=== PATIENT | female | born 1970 | race Caucasian/White ===

== ENCOUNTER → 2016-10-05 | Outpatient (CLI) | payer OTHER | LOC: FIMAGING 09:59 | DX: Z12.31 Encounter for screening mammogram for malignant neoplasm of breast (principal) | CPT/HCPCS: G0202 ==

== ENCOUNTER → 2016-10-13 | Outpatient (CLI) | payer OTHER | LOC: FIMAGING 10:06 | PROVIDERS: ATTEND Internal Medicine | DX: Z12.39 Encounter for other screening for malignant neoplasm of breast (principal); N63 Unspecified lump in breast ==

== ENCOUNTER → 2017-02-22 | Outpatient (CLI) | payer OTHER | LOC: CIMAGING 14:45 | PROVIDERS: ATTEND Internal Medicine | DX: R91.8 Other nonspecific abnormal finding of lung field (principal) | CPT/HCPCS: 71020-PO ==

== ENCOUNTER → 2017-03-02 | Outpatient (CLI) | payer OTHER ==
[~2017-03-02] MED LIST: IOPAMIDOL (ISOVUE-300) 100 ML BTL ONE
== END ==
LOC: CIMAGING 11:12
PROVIDERS: ATTEND Internal Medicine
DX: R91.8 Other nonspecific abnormal finding of lung field (principal); D71 Functional disorders of polymorphonuclear neutrophils
CPT/HCPCS: 71260-PO; Q9967

== ENCOUNTER 2017-03-12 06:18 | Day surgery (SDC) | payer OTHER ==
[2017-03-12] MEDS ORDERED: LIDOCAINE HCL 4% TOPICAL SOLN 50ML ONE (06:30)
[2017-03-12] MEDS ORDERED: LIDOCAINE 1% 300 MG/30 ML SDV ONE (06:30)
[2017-03-12] MEDS ORDERED: ALBUTEROL 3 ML DEYVIAL ONE (06:30)
[2017-03-12] MEDS ORDERED: LIDOCAINE 2% JELLY 5 ML TUBE ONE (06:30)
[2017-03-12] MEDS ORDERED: FLUMAZENIL 0.5 MG/5 ML MDV IVP ONE (07:09)
[2017-03-12 07:10] VITALS: PULSE 57; TEMP 97.7
[2017-03-12] MEDS ORDERED: MIDAZOLAM 2 MG/2 ML VIAL ONE ×2 (07:10→08:19)
[2017-03-12] MEDS ORDERED: LR 1,000 ML IV ONE (07:10)
[2017-03-12] MEDS ORDERED: NALOXONE HCL 0.4 MG/ML INJ ONE (07:10)
[2017-03-12] MEDS ORDERED: fentaNYL 100 MCG/2 ML INJ ONE ×2 (07:11→08:19)
--- NOTE | 2017-03-12 07:41 | PDHPUP ---
History & Physical Update H&P update statement: This history and physical update is based on an assessment of the patient which was completed after admission or registration (within 24 hours), but prior to the surgery/procedure. H&P update: H&P reviewed & patient examined, no change in patient's condition since H&P completed
--- NOTE | 2017-03-12 07:42 | PDPROPOC ---
Sedation Plan of Care Sedation Plan of Care: vital signs stable, mental status noted, patient educated of risks, benefits, alternatives, patient can tolerate sedation ASA Classification: ASA 1 Mallampati Score: Class 1 332 Rule: 2
[2017-03-12 08:33] VITALS: BP 104/57; RESP 16; O2SAT 95
--- NOTE | 2017-03-12 09:07 | GPN ---
[f rep st] PROCEDURE NOTE PROCEDURE: Fiberoptic bronchoscopy. INDICATION: Right upper lobe lung mass. ANESTHESIA: She received Versed 6 mg, fentanyl 175 mcg. She also received 1% lidocaine topically, 4% lidocaine nebulized. Procedure was performed in the endoscopy suite with continuous pulse ox, EK G, blood pressure monitoring. It was performed in a negative pressure room. N95 masks were used th roughout the procedure. DESCRIPTION OF PROCEDURE: Bronchoscope was entered orally. Vocal cords were visualized and opposed easily. Trachea and basil were visualized and showed no endobronchial lesion, normal-appearing mu cosa. Bronchoscope was entered in the left lung. Left upper lobe, lingula, left lower lobe, includ ing subsegments, were visualized and showed no endobronchial lesion, normal-appearing mucosa. Bronc hoscope in the right lung. Right upper lobe, right middle lobe, right lower lobe, including subsegm ents, were visualized and showed no endobronchial lesion and normal-appearing mucosa. Via fluorosco py attempts were made to biopsy the right upper lobe mass; however, was unable to place forceps on t his. Bronchoalveolar lavage was taken from the right upper lobe. This was sent for C and S, AFB, f ungal cultures, and cytology. Patient tolerated the procedure well. There were no apparent complic ations. Portable chest x-ray was called for. /[id number]/MODL
== END 2017-03-12 10:32 | disposition home or self-care (01) ==
LOC: FSGY 06:18
PROVIDERS: ATTEND Internal Medicine Pulmonary Disease
PROC: 0B948ZX Drainage of Right Upper Lobe Bronchus, Via Natural or Artificial Opening Endoscopic, Diagnostic (ICD-10-PCS; principal; 2017-03-12 07:30)
DX: R91.8 Other nonspecific abnormal finding of lung field (principal); Z87.891 Personal history of nicotine dependence; Z80.1 Family history of malignant neoplasm of trachea, bronchus and lung
CPT/HCPCS: J0171; J2250; J2310; J3010

== ENCOUNTER 2017-03-21 13:42 | Emergency (ER) | payer OTHER ==
[2017-03-21 13:50] VITALS: RESP 16
--- NOTE | 2017-03-21 14:48 | EDPHY ---
H & P Stated Complaint: ? reaction in IV isotope:?passed out Time Seen by Provider: 03/21/17 14:32 HPI/ROS: CHIEF COMPLAINT: Syncopal episode after receiving injection for PET scan HISTORY OF PRESENT ILLNESS: The patient presents to the ED after she experienced a episode of unresponsiveness and shaking in her legs following the injection of a material for a PET scan. The patient was given Benadryl with the thought that this may be a allergic reaction. Although she had no symptoms of hives, urticaria or wheezing. The patient does report she has a history of depression and anxiety. 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 The patient denies any complaints of acute headache , numbness, focal weakness, fever, acute pain or other concerns. REVIEW OF SYSTEMS: A comprehensive 10 point review of systems is otherwise negative aside from elements mentioned in the history of present illness. Source: Patient Exam Limitations: No limitations - Personal History Current Tetanus Diphtheria and Acellular Pertussis (TDAP): Yes - Medical/Surgical History Hx Asthma: Yes Hx Chronic Respiratory Disease: Yes Hx Diabetes: No Hx Cardiac Disease: No Hx Renal Disease: No Hx Cirrhosis: No Hx Alcoholism: Yes Hx HIV/AIDS: No Hx Splenectomy or Spleen Trauma: No Other PMH: Allergies. lung mass - Social History Smoking Status: Current every day smoker - Physical Exam Exam: General Appearance: Alert, no distress Eyes: Pupils equal and round no pallor or injection ENT, Mouth: Mucous membranes moist Respiratory: There are no retractions, lungs are clear to auscultation Cardiovascular: Regular rate and rhythm Gastrointestinal: Abdomen is soft and nontender, no masses, bowel sounds normal Neurological: A&O, normal motor function, normal sensory exam, normal cranial nerves Skin: Warm and dry, no rashes Musculoskeletal: Neck is supple nontender Extremities: symmetrical, full range of motion Constitutional: Initial Vital Signs Temperature (C) 37 C 03/21/17 13:48 Heart Rate 55 L 03/21/17 13:48 Respiratory Rate 16 03/21/17 13:48 Blood Pressure 122/80 H 03/21/17 13:48 O2 Sat (%) 97 03/21/17 13:48 O2 Delivery Mode Room Air Allergies/Adverse Reactions: No Known Allergies Allergy (Verified 03/21/17 13:47) Home Medications: Medication Instructions Recorded Albuterol Hfa Anes Only [Proair 2 puffs IH QID PRN #1 mdi 02/06/15 Hfa Anes Only] LAMICTAL ODT (GREEN) 02/06/15 Levothyroxine [Synthroid 25 mcg 02/06/15 (*)] Paxil 10mg (RX) 02/06/15 Prozac 40 mg 03/12/17 Medical Decision Making - Diagnostics EKG Interpretation: EKG: Complete interpretation has been separately recorded in the [facility] archive. Summary impression: Sinus rhythm, no acute changes noted ED Course/Re-evaluation: The patient presents to the ED after not unexplained episode while getting a CT PET scan. She had no evidence of hives or anaphylaxis however did have an episode of decreased responsiveness and reported shaking of her bilateral lower extremities. The patient was conscious during this episode. The patient has had no prior history of similar reactions in the past. She did receive Benadryl prior to arrival. The patient arrived in the emergency department with a normal neurologic examination, no abnormal motor activity or abnormal behavior. The patient's EKG demonstrates no evidence of an arrhythmia and the patient's laboratory studies are within normal limits. The patient was observed here for several hours. She was examined by myself x2 over a 2 hour period without any development of new symptoms or vital sign abnormalities. At this point time the etiology of her symptoms are somewhat uncertain. It is certainly possible that they were psychogenic in nature versus an atypical reaction to the medication used for the PET scan. I do feel the patient can be discharged home with instructions to return to the ED for any recurrent symptoms or other concerns. Differential Diagnosis: Differential diagnosis considered includes seizure, anaphylactic reaction, medication side effect, arrhythmia - Data Points Laboratory Results: Laboratory Results 03/21/17 14:52 03/21/17 14:52 03/21/17 03/21/17 14:52 14:52 WBC 5.13 10^3/uL 10^3/uL (3.80-9.50) RBC 4.48 10^6/uL 10^6/uL (4.18-5.33) Hgb 13.2 g/dL g/dL (12.6-16.3) Hct 39.4 % % (38.0-47.0) MCV 87.9 fL fL (81.5-99.8) MCH 29.5 pg pg (27.9-34.1) MCHC 33.5 g/dL g/dL (32.4-36.7) RDW 13.7 % % (11.5-15.2) Plt Count 250 10^3/uL 10^3/uL (150-400) MPV 8.6 fL L fL (8.7-11.7) Neut % (Auto) 53.3 % % (39.3-74.2) Lymph % (Auto) 29.4 % % (15.0-45.0) [place] % (Auto) 14.4 % H % (4.5-13.0) Eos % (Auto) 2.1 % % (0.6-7.6) Baso % (Auto) 0.6 % % (0.3-1.7) Nucleat RBC Rel Count 0.0 % % (0.0-0.2) Absolute Neuts (auto) 2.73 10^3/uL 10^3/uL (1.70-6.50) Absolute Lymphs (auto) 1.51 10^3/uL 10^3/uL (1.00-3.00) Absolute Monos (auto) 0.74 10^3/uL 10^3/uL (0.30-0.80) Absolute Eos (auto) 0.11 10^3/uL 10^3/uL (0.03-0.40) Absolute Basos (auto) 0.03 10^3/uL 10^3/uL (0.02-0.10) Absolute Nucleated RBC 0.00 10^3/uL 10^3/uL (0-0.01) Immature Gran % 0.2 % % (0.0-1.1) Immature Gran # 0.01 10^3/uL 10^3/uL (0.00-0.10) Sodium 138 mEq/L mEq/L (134-144) Potassium 4.3 mEq/L mEq/L (3.5-5.2) Chloride 103 mEq/L mEq/L (97-110) Carbon Dioxide 23 mEq/l mEq/l (22-31) Anion Gap 12 mEq/L mEq/L (8-16) BUN 10 mg/dL mg/dL (7-23) Creatinine 0.7 mg/dL mg/dL (0.6-1.0) Estimated GFR > 60 Glucose 78 mg/dL mg/dL (70-100) Calcium 8.9 mg/dL mg/dL (8.5-10.4) Medications Given: Sodium Chloride (Ns) 1,000 mls @ 0 mls/hr IV CONT PROSPER PRN Reason: TKO Stop: 09/17/17 14:59 Last Admin: 03/21/17 14:48 Dose: 1,000 mls Departure - Departure Disposition: Home, Routine, Self-Care Clinical Impression: Episode of shaking, Lung mass Condition: Good Instructions: Poison Proofing Your Home (ED) Additional Instructions: 1. Please schedule a follow-up appointment with your primary care provider. 2. Please return to the ED for any recurrent symptoms or other concerns. 3. Your blood testing, EKG and observation in the emergency department demonstrate no evidence of a serious life-threatening reaction. Referrals: Monty Allison MD [Primary Care Provider] - As per Instructions
[2017-03-21] MEDS ORDERED: NS 1,000 ML IV SCH (15:00)
--- NOTE | 2017-03-21 15:00 | CPEKG ---
Heart Rate: 53 RR Interval: 1132 P-R Interval: 172 QRSD Interval: 94 QT Interval: 480 QTC Interval: 451 P [place]: 49 QRS [place]: 97 T Wave [place]: 53 EKG Severity - BORDERLINE ECG - EKG Impression: SINUS RHYTHM Electronically Signed By: Smooth Floyd 21-Mar-2017 15:09:09
[2017-03-21 15:16] LABS: % IMMATURE GRANULYOCYTES 0.2 % (0.0-1.1); ABSOLUTE IMMATURE GRANULOCYTES 0.01 10^3/uL (0.00-0.10); ADD DIFF? NO; ADD MORPH? NO; ADD SCAN? NO; ATYPICAL LYMPHOCYTE FLAG 0 (0-99); FRAGMENT RBC FLAG 0 (0-99); HEMATOCRIT 39.4 % (38.0-47.0); HEMOGLOBIN 13.2 g/dL (12.6-16.3); LEFT SHIFT FLG 0 (0-99); LIPEMIA HEMOLYSIS FLAG 80 (0-99); MEAN CELL HEMOGLOBIN 29.5 pg (27.9-34.1); MEAN CELL HEMOGLOBIN CONCENTR. 33.5 g/dL (32.4-36.7); MEAN CELL VOLUME 87.9 fL (81.5-99.8); MEAN PLATELET VOLUME 8.6 fL (8.7-11.7); PLATELET CLUMPS FLAG 20 (0-99); PLATELET COUNT 250 10^3/uL (150-400); RED BLOOD CELL COUNT 4.48 10^6/uL (4.18-5.33); RED CELL DISTRIBUTION WIDTH 13.7 % (11.5-15.2)
[2017-03-21 15:23] LABS: ANION GAP 12 mEq/L (8-16); CALCIUM 8.9 mg/dL (8.5-10.4); CARBON DIOXIDE 23 mEq/l (22-31); CHLORIDE 103 mEq/L (97-110); CREATININE 0.7 mg/dL (0.6-1.0); GLOMERULAR FILTRATION RATE > 60; GLUCOSE 78 mg/dL (70-100); POTASSIUM 4.3 mEq/L (3.5-5.2); SODIUM 138 mEq/L (134-144)
[2017-03-21 16:53] VITALS: BP 108/68; PULSE 56; TEMP 98.2; O2SAT 96
== END 2017-03-21 16:53 | disposition home or self-care (01) ==
DX: R91.8 Other nonspecific abnormal finding of lung field (principal); R25.1 Tremor, unspecified; J45.909 Unspecified asthma, uncomplicated; F17.200 Nicotine dependence, unspecified, uncomplicated

== ENCOUNTER → 2017-03-29 | Outpatient (CLI) | payer OTHER | LOC: CIMAGING 11:18 | PROVIDERS: ATTEND Internal Medicine | DX: M17.0 Bilateral primary osteoarthritis of knee (principal) | CPT/HCPCS: 73562-PO ==

== ENCOUNTER → 2017-05-09 | Outpatient (CLI) | payer OTHER | LOC: CIMAGING 09:18 | PROVIDERS: ATTEND Internal Medicine Pulmonary Disease | DX: J98.4 Other disorders of lung (principal); J84.10 Pulmonary fibrosis, unspecified | CPT/HCPCS: 71250-PO ==

== ENCOUNTER → 2017-05-17 | Outpatient (CLI) | payer OTHER | LOC: CIMAGING 16:56 | PROVIDERS: ATTEND Internal Medicine | DX: R07.81 Pleurodynia (principal) | CPT/HCPCS: 71020-PO ==

== ENCOUNTER → 2017-07-06 | Outpatient (CLI) | payer OTHER | LOC: FIMAGING 10:15 | PROVIDERS: ATTEND Internal Medicine | DX: M48.02 Spinal stenosis, cervical region (principal); M50.322 Other cervical disc degeneration at C5-C6 level; M46.92 Unspecified inflammatory spondylopathy, cervical region ==

== ENCOUNTER → 2017-11-20 | Outpatient (CLI) | payer OTHER | LOC: FIMAGING 09:31 | PROVIDERS: ATTEND Internal Medicine | DX: Z12.31 Encounter for screening mammogram for malignant neoplasm of breast (principal) ==

== ENCOUNTER → 2017-11-28 | Outpatient (CLI) | payer OTHER | LOC: CIMAGING 10:12 | PROVIDERS: ATTEND Internal Medicine Pulmonary Disease | DX: J85.2 Abscess of lung without pneumonia (principal) | CPT/HCPCS: 71250-PO ==

== ENCOUNTER → 2018-01-17 | Outpatient (CLI) | payer OTHER | LOC: CIMAGING 11:30 | PROVIDERS: ATTEND Internal Medicine | DX: J40 Bronchitis, not specified as acute or chronic (principal) | CPT/HCPCS: 71046-PO ==

== ENCOUNTER → 2018-05-13 | Outpatient (CLI) | payer OTHER | LOC: BMCIMAGING 16:41 | PROVIDERS: ATTEND Internal Medicine Rheumatology | DX: M79.7 Fibromyalgia (principal) ==

== ENCOUNTER → 2018-07-08 | Outpatient (CLI) | payer OTHER | LOC: CLAB 08:30 → EDSTATUS 08:33 → CIMAGING 08:34 | PROVIDERS: ATTEND Internal Medicine | DX: M19.012 Primary osteoarthritis, left shoulder (principal) | CPT/HCPCS: 73030-PO ==

== ENCOUNTER → 2018-08-15 | Outpatient (CLI) | payer OTHER | LOC: CIMAGING 10:02 | PROVIDERS: ATTEND Internal Medicine | DX: R05 Cough (principal); Z87.09 Personal history of other diseases of the respiratory system | CPT/HCPCS: 71046-PO ==

== ENCOUNTER → 2018-10-19 | Outpatient (CLI) | payer OTHER | LOC: EMCIMAGING 10:18 | PROVIDERS: ATTEND Physician Assistant | DX: M25.561 Pain in right knee (principal) ==

== ENCOUNTER → 2018-11-13 | Outpatient (CLI) | payer OTHER | LOC: EMCIMAGING 10:07 | PROVIDERS: ATTEND Physician Assistant | DX: M19.012 Primary osteoarthritis, left shoulder (principal); M89.512 Osteolysis, left shoulder; M85.412 Solitary bone cyst, left shoulder | CPT/HCPCS: 73221-PN ==

== ENCOUNTER → 2018-11-22 | Outpatient (CLI) | payer OTHER | LOC: EMCIMAGING 08:06 | PROVIDERS: ATTEND Internal Medicine | DX: Z12.31 Encounter for screening mammogram for malignant neoplasm of breast (principal) | CPT/HCPCS: 77067-PN ==

== ENCOUNTER → 2018-11-26 | Outpatient (CLI) | payer OTHER | LOC: EMCIMAGING 07:13 | PROVIDERS: ATTEND Physician Assistant | DX: M18.12 Unilateral primary osteoarthritis of first carpometacarpal joint, left hand (principal); S63.062A Subluxation of metacarpal (bone), proximal end of left hand, initial encounter | CPT/HCPCS: 73221-PN ==